=== PATIENT | male | born 1955 | race Caucasian/White ===

== ENCOUNTER 2021-11-03 09:50 | Outpatient (CLI) | payer MEDICARE, BC, SELFPAY | END 2021-11-03 09:51 | disposition home or self-care (01) | LOC: OP CLINIC 09:51 | PROVIDERS: PCP Family Medicine; Visit Provider Surgery | DX: Z12.11 Encounter for screening for malignant neoplasm of colon (principal); Z86.010 Personal history of colon polyps | CPT/HCPCS: 45378; 99153; J2250; J3010 ==

== ENCOUNTER 2022-07-21 10:25 | Outpatient (CLI) | payer MEDICARE, BC, SELFPAY | END 2022-07-21 10:26 | disposition home or self-care (01) | LOC: LONREF 10:26 | PROVIDERS: PCP Family Medicine; Visit Provider Family Medicine | DX: Z00.00 Encounter for general adult medical examination without abnormal findings (principal); I10 Essential (primary) hypertension | CPT/HCPCS: 80048 ==

== ENCOUNTER 2023-06-27 11:55 | Observation (INO) | payer MEDICARE, BC, SELFPAY ==
[2023-06-27] VITALS (21 sets, daily range): BP systolic 125–175; BP diastolic 71–118; PULSE 47–64; RESP 14–18; TEMP 36.2–36.8; O2SAT 88–100; BMI 23.7; BMI 24.9
[2023-06-27] MEDS: ONDANSETRON 2 MG/ML inj 4 MG IVP ×2 (12:00→13:21)
--- NOTE | 2023-06-27 12:03 | CT_ITS ---
Patient: KRYSTIAN BUTLER Facility:?[facility] Patient ID:?[id number] Site Patient ID:?[id number]. Site :?1955 Study:?CT-Head Angio W ISOVUE 370 STROKE PROTOCOL-06/27/2023 12:22:15 PM Ordering Physician:MAR Final Report: CLINICAL HISTORY: Vertigo. TECHNIQUE: Standard helical CT image acquisition through the head following the administration of intravenous contrast was performed. 3D and MIP reconstructions were performed at a separate workstation and permanently archived. COMPARISON: None available. FINDINGS: No intracranial proximal large vessel occlusion or flow-limiting luminal stenosis. No evidence of cerebral aneurysm. No findings to suggest an arterial-venous shunting lesion. The major dural venous sinuses and deep venous system are patent. IMPRESSION: No intracranial proximal large vessel occlusion, flow-limiting luminal stenosis, or cerebral aneurysm. Please note that all CT scans at this facility use dose modulation, iterative reconstruction, and/or weight-based dosing when appropriate to reduce radiation dose to as low as reasonably achievable. Dictated by Chan Montoya MD @ 06/27/2023 12:48:09 PM Signed by:?Chan Montoya MD @06/27/2023 12:48:09 PM (Electronic Signature)
--- NOTE | 2023-06-27 12:03 | CT_ITS ---
Patient: KRYSTIAN BUTLER Facility:?[facility] Patient ID:?[id number] Site Patient ID:?[id number]. Site :?1955 Study:?CT-Head WO STROKE PROTOCOL-06/27/2023 12:18:15 PM Ordering Physician:MAR Final Report: INDICATION: Vertigo COMPARISON: None. TECHNIQUE: CT of the head without contrast. Multiplanar reformats are included. FINDINGS: No intracranial hemorrhage. No acute or subacute cortically based infarct. Normal appearance of the white matter. No mass or mass effect Normal ventricles. No skull fractures. No worrisome focal bone lesion. The mastoids and middle ears are normally aerated. IMPRESSION: Normal head CT. Please note that all CT scans at this facility use dose modulation, iterative reconstruction, and/or weight-based dosing when appropriate to reduce radiation dose to as low as reasonably achievable. Dictated by Ketty Powell MD @ 06/27/2023 12:24:50 PM ----- ADDENDUM ----- Report confirmed as received by Dr. Hill at 12:25 p.m. on 06/27/2023. Dictated by Ketty Powell MD @ Jun 27 2023 12:29PM Signed by:?Ketty Powell MD @06/27/2023 12:24:50 PM (Electronic Signature)
--- NOTE | 2023-06-27 12:03 | CT_ITS ---
Patient: KRYSTIAN BUTLER Facility:?[facility] Patient ID:?[id number] Site Patient ID:?[id number]. Site :?1955 Study:?CT-Neck Angio W ISOVUE 370 STROKE PROTOCOL-06/27/2023 12:25:34 PM Ordering Physician:MAR Final Report: CLINICAL HISTORY: Vertigo. TECHNIQUE: Standard helical CT image acquisition through the neck was performed after intravenous contrast bolus enhancement. 3D and MIP reconstructions were performed at a separate workstation and permanently archived. COMPARISON: None available. FINDINGS: The origins of the great vessels from the aortic arch are patent. The common carotid arteries are patent. No significant luminal stenoses of the proximal ICAs by NASCET criteria. The more distal cervical segments of the ICAs are patent. The origins and cervical segments of the vertebral arteries are patent. IMPRESSION: Patent cervical arterial vasculature without hemodynamically significant luminal stenosis. Please note that all CT scans at this facility use dose modulation, iterative reconstruction, and/or weight-based dosing when appropriate to reduce radiation dose to as low as reasonably achievable. Dictated by Chan Montoya MD @ 06/27/2023 12:48:49 PM Signed by:?Chan Montoya MD @06/27/2023 12:48:49 PM (Electronic Signature)
--- NOTE | 2023-06-27 12:06 | ED.GENADULT ---
HPI - General Adult General Date Seen: 06/27/23 Chief complaint: Nausea/Vomiting Stated complaint: vomiting Time Seen by Provider: 06/27/23 12:02 Source: patient, EMS and RN notes reviewed Mode of arrival: EMS Limitations: no limitations History of Present Illness HPI narrative: Patient was seen on arrival as stroke code called, was brought in by EMS from home. He was out getting would, was putting it in a wood burner when he had sudden severe onset of dizziness which is described as a spinning sensation. He had severe nausea vomiting with it. He states he cannot open his eyes. He has hypertension, no history of any vascular disease or cardiac disease, no prior strokes. He is a nonsmoker. He states he does take medicine for hypertension but no other medicines. He denies any trauma, did not hit his head. He does not take daily aspirin or any blood thinners. He did not get any medicines in route by EMS. Denies any numbness tingling or weakness in his extremities, states he cannot open his eyes as he becomes severely symptomatic, is hanging onto an emesis bag on arrival. Related Data Home Medications Medication Instructions Recorded Confirmed losartan 25 mg tablet 25 mg PO DAILY 06/27/23 06/27/23 Allergies Allergy/AdvReac Type Severity Reaction Status Date / Time No Known Allergies Allergy Unverified 07/21/22 09:31 Review of Systems Status of ROS: Reports: 6 or more systems reviewed and unremarkable except as noted in History and below [facility] Medical History (Updated 06/27/23 @ 16:57 by Flor Gillespie PA-C) Bradycardia ?R00.1 - Bradycardia, unspecified (ICD-10) Hypertension ?I10 - Essential (primary) hypertension (ICD-10) Surgical History History of colonoscopy ?Z98.890 - Other specified postprocedural states (ICD-10) Social History What is your current living situation?: I presently have a place to live Problems where you live: no known problems Problems where you live details: none In the past 12 months, utilities in danger of being shut off: no In past 12 months, lack of transportation kept you from medical appts, meetings, work, or getting things needed for daily living: no In the past 12 mos, have been you worried that your food would run out before you had money to buy more?: never true In the past 12 mos, the food you bought just didn't last and you didn't have money to buy more?: never true Highest level of school completed/degree received: Bachelor's degree Smoking Status: Never smoker How often do you have a drink containing alcohol: monthly or less Alcohol type: beer AUDIT-C Alcohol total score: 1 Non-prescribed substance use: denies use Caffeine: No How often does anyone, including family, friends and others, physically hurt you: never How often does anyone, including family, friends and others, insult or talk down to you: never How often does anyone, including family, friends and others, threaten you with harm: never How often does anyone, including family, friends and others, scream or curse at you: never Little interest or pleasure in doing things: not at all Feeling down, depressed, or hopeless: not at all service: No Exam Const: Vital Signs, click to edit/add: Vital Signs - 24 hr 06/27/23 12:05 06/27/23 12:20 06/27/23 12:40 Temperature 97.1 F L Pulse Rate Pulse Rate [Right Pulse Oximeter] 52 L Respiratory Rate 18 Blood Pressure Blood Pressure [Ri ght Upper Arm] 170/91 H Pulse Oximetry 100 98 88 Oxygen Delivery Me thod Room Air Nasal Cannula Oxygen Flow Rate 2 06/27/23 12:57 06/27/23 13:00 06/27/23 13:04 Temperature Pulse Rate 51 L 51 L 64 Pulse Rate [Right Pulse Oximeter] Respiratory Rate Blood Pressure 169/118 H Blood Pressure [Ri ght Upper Arm] Pulse Oximetry 100 100 100 Oxygen Delivery Me thod Oxygen Flow Rate 06/27/23 13:17 06/27/23 13:30 06/27/23 14:17 Temperature Pulse Rate 48 L 53 L 53 L Pulse Rate [Right Pulse Oximeter] Respiratory Rate Blood Pressure 142/80 H Blood Pressure [Ri ght Upper Arm] Pulse Oximetry 98 100 99 Oxygen Delivery Me thod Oxygen Flow Rate 06/27/23 14:19 06/27/23 14:20 06/27/23 14:30 Temperature Pulse Rate 54 L 51 L 50 L Pulse Rate [Right Pulse Oximeter] Respiratory Rate Blood Pressure 156/75 H Blood Pressure [Ri ght Upper Arm] Pulse Oximetry 100 100 99 Oxygen Delivery Me thod Oxygen Flow Rate 06/27/23 15:00 Temperature Pulse Rate 47 L Pulse Rate [Right Pulse Oximeter] Respiratory Rate Blood Pressure Blood Pressure [Ri ght Upper Arm] Pulse Oximetry 100 Oxygen Delivery Me thod Oxygen Flow Rate On arrival, patient is alert and interactive but closing his eyes, cannot get him to open his eyes for more than maybe a couple seconds, can see just long enough to note that his pupils do seeing equal, conjugate gaze, will not keep them open long enough for me to be able to assess nystagmus. He is able to talk, speech seems normal, does demonstrate symmetrical facial function. Lungs sound clear, heart rate is regular, no murmur. Abdomen is soft, rebound or guarding. Seems to have symmetrical hand cardio tech strengths which are normal, normal sensation. No gross focal neurologic deficit noted at this time but exam limited by patient's significant symptomatic vertigo, will not open eyes. Documenting provider has reviewed patient's vital signs: yes Course Course ED Course: We are proceeding with a stroke code on this patient, will go get CT, CT angio of head neck emergently. Will get EKG, appropriate labs, be on cardiac monitoring and pulse oximetry. IV obviously needs to be established. Will give him 4 mg IV Zofran for nausea control. Staff is contacting stroke Neurology per protocol. Reevaluation(s) Time of Reevaluation #1: 12:47 Reevaluation #1: Patient is sedated from the IV Valium but states he feels better. Is able to open his eyes, has consistent right beating nystagmus. Does have catch-up saccades with movement of his head in asking him to fix is gaze, he states that that maneuver makes him symptomatic. He closes his eyes again. He feels like he is falling when he closes his eyes. He has strength that is 5/5 and symmetric, speech is normal, symmetrical facial function. Normal light touch sensation throughout face and extremities. No arm drift, can lift legs off the bed and hold them up, on heel-maurer he puts his heel along the medial calf and goes up and down his leg but there is no dysmetria within that maneuver, symmetrical on both sides. His family is updated on the head CT being normal. They are wondering if that is sufficient. Reviewed with him the process that we work through when we are looking at these specific symptoms. Did discuss stroke. Patient had a [id number] that had a brain tumor that did not get picked up with head CT. Reviewed with them that this is common, well known for us. Sometimes tumors need MRI within the brain to be diagnosed. Reviewed with them that we are most concerned about the potential of his stroke here however, need to rule out central cause for his vertigo. He may still be getting MRI, they are where that I am going to be talking to Stroke Neurology again. Time of Reevaluation #2: 13:17 Reevaluation #2: We are trying to get this patient worked into the MRI schedule but he just had another emesis. There was concern about him being able to safely do the MRI. We are going to give him another dose of IV Zofran 4 mg, will try a dose of 5 mg oral Valium with this. I do think repeating the IV Valium maybe a bit too sedating for this patient. Time of Reevaluation #3: 14:52 Reevaluation #3: Updated patient's 2 sons who were in the room with him. Patient was initially resting and then started dry heaving, was just lying on his left side quietly when he stated he was going to throw up. Was more dry heaving. I will order a does of IV Ativan. He will need to come in for symptom control. If this continues, would discuss with Neurology again. Consultations Consultation #1: Have spoken with Stroke Neurology, talked to Dr. Hill. We will proceed with a head CT imaging. I will contact her back once patient comes back from head CT, will try 2.5 mg IV Valium as well as the Zofran for symptom control. If the Valium does help him, will see if I can evaluate him better prior to calling Dr. Hill back. Time: 12:07 Consultation #2: Called and left message on Dr. Hill's cellphone to contact me back. She called back within minutes, reviewed my updates with her. She would like to proceed with brain MRI. Time: 12:57 Consultation #3: Have updated Dr. Hill that the MRI is showing no evidence of any acute ischemia. Thus, plan to treat him here symptomatic Karen, will talk to our hospitalist. He seems too symptomatic to be able to go home. Will consider this vertigo disorder along the lines of something like vestibular neuritis. It is interesting to me that it just happened suddenly when he was moving logs. If the hospitalist has any questions for Neurology, they should feel free to contact them, Dr. Hill will be on tomorrow as well. Will update patient and his family now on plan in the negative MRI. Time: 14:46 Additional Consultation(s): 2:56 p.m.: Have spoken with Flor Gillespie hospitalist, she does accept care. Vital Signs Vital signs: Initial Vital Signs Temperature 97.1 F L 06/27/23 12:05 Temperature Source Temporal Artery Scan 06/27/23 12:05 Pulse Rate 52 L 06/27/23 12:05 Respiratory Rate 18 06/27/23 12:05 Blood Pressure 170/91 H 06/27/23 12:05 Blood Pressure Mean 117 H 06/27/23 12:05 Blood Pressure Position Supine 06/27/23 12:05 Pulse Oximetry 100 06/27/23 12:05 Oxygen Delivery Method Room Air 06/27/23 12:05 Vital Signs Temperature 97.1 F L 06/27/23 12:05 Pulse Rate 52 L 06/27/23 12:05 Respiratory Rate 18 06/27/23 12:05 Blood Pressure 170/91 H 06/27/23 12:05 Pulse Oximetry 100 06/27/23 12:05 Oxygen Delivery Method Room Air 06/27/23 12:05 Temperature 97.7 F 06/27/23 15:49 Pulse Rate 53 L 06/27/23 17:02 Respiratory Rate 16 06/27/23 16:12 Blood Pressure 175/94 H 06/27/23 15:49 Pulse Oximetry 96 06/27/23 16:12 Oxygen Delivery Method Room Air 06/27/23 16:12 Oxygen Flow Rate 2 06/27/23 12:40 Medications Administered Medications: Generic Name Dose Route Start Last Admin Trade Name Freq PRN Reason Stop Dose Admin Sodium Chloride 1,000 mls @ 75 mls/hr 06/27/23 16:01 06/27/23 16:38 0.9 % Sodium Chloride 1000 Ml IV 06/28/23 05:20 75 mls/hr .[id number] BRAYAN Administration Scopolamine 1 patch 06/27/23 17:00 06/27/23 16:53 Scopolamine 1 Mg/3 Day Patch TRANSDERMA 1 patch Q72H BRAYAN Administration Discontinued Medications Generic Name Dose Route Start Last Admin Trade Name Freq PRN Reason Stop Dose Admin Diazepam 2.5 mg 06/27/23 12:09 06/27/23 12:35 Diazepam 5 Mg/Ml Inj IV 06/27/23 12:10 2.5 mg ONCE ONE Administration Diazepam 5 mg 06/27/23 13:16 06/27/23 13:35 Diazepam 5 Mg Tablet PO 06/27/23 13:17 5 mg ONCE ONE Administration Lorazepam 0.5 mg 06/27/23 14:53 06/27/23 15:05 Lorazepam 2 Mg/Ml Inj IVP 06/27/23 14:54 0.5 mg ONCE ONE Administration Ondansetron HCl 4 mg 06/27/23 12:06 06/27/23 12:00 Ondansetron 2 Mg/Ml Inj IVP 06/27/23 12:07 4 mg ONCE ONE Administration Ondansetron HCl 4 mg 06/27/23 13:16 06/27/23 13:21 Ondansetron 2 Mg/Ml Inj IVP 06/27/23 13:17 4 mg ONCE ONE Administration Medical Decision Making Lab Data Lab results reviewed: Yes I reviewed the patient's lab results Labs: Lab Results 06/27/23 06/27/23 Range/Units 12:03 12:30 WBC 5.85 (4.50-11.00) K/uL RBC 4.57 (4.30-5.90) m/uL Hgb 13.6 (13.5-17.5) gm/dL Hct 39.7 (37.0-53.0) % MCV 87 (80-100) fL MCH 30 (26-34) pg MCHC 34 (32-36) gm/dL RDW Coeff of Katerine 12.7 (11.5-15.5) % Plt Count 105 L (140-440) K/uL Neut % (Auto) 76.7 H (42.0-72.0) % Lymph % (Auto) 14.9 L (20-44) % Sandoval % (Auto) 6.3 (0.0-11.0) % Eos % (Auto) 1.4 (0.0-7.0) % Baso % (Auto) 0.5 (0.0-3.0) % Neut # (Auto) 4.50 (1.7-7.0) K/uL Lymph # (Auto) 0.90 (0.90-2.90) K/uL Sandoval # (Auto) 0.40 (0.00-0.90) K/UL Eos # (Auto) 0.08 (0.00-0.50) K/uL Baso # (Auto) 0.03 (0.00-0.30) K/uL Abs Immat Gran (auto) 0.01 (0.00-0.30) K/uL Imm/Tot Granulo (auto) 0.2 % INR 0.98 (0.91-1.10) APTT 30 (23-33) Seconds Sodium 135 (135-149) mmol/L Potassium 4.5 (3.6-5.1) mmol/L Chloride 104 (96-114) mmol/L Carbon Dioxide 24 (20-32) mmol/L Anion Gap 7 (7-15) mEq/L BUN 16 (7-30) mg/dL Creatinine 0.7 (0.5-1.5) mg/dL Estimated Creat Clear 78.68 Estimated GFR 101 ml/min Glucose 111 (60-115) mg/dL Calcium 8.9 (8.4-10.6) mg/dL Total Bilirubin 1.4 (0.1-1.5) mg/dL AST 24 (12-35) U/L ALT 20 (4-50) U/L Alkaline Phosphatase 56 (40-150) U/L Troponin I < 0.01 L (0.01-0.04) ng/mL C-Reactive Protein < 0.5 L (0.5-1.0) mg/dL Total Protein 7.2 (6.0-8.3) g/dL Albumin 4.1 (3.3-5.0) g/dL TSH 1.530 (0.270-4.200) uIU/mL POC Glucose 109 (60-115) mg/dl Imaging Data CT scan - head: Attestation: I have reviewed the pertinent imaging results. Radiologist's impression: Patient: KRYSTIAN BUTLER Facility:[facility] Patient ID:?[id number] Site Patient ID:?[id number]. Site :?1955 Study:?CT Head WO STROKE PROTOCOL-06/27/2023 12:18:15 PM Ordering Physician:MAR Final Report: INDICATION: Vertigo COMPARISON: None. TECHNIQUE: CT of the head without contrast. Multiplanar reformats are included. FINDINGS: No intracranial hemorrhage. No acute or subacute cortically based infarct. Normal appearance of the white matter. No mass or mass effect Normal ventricles. No skull fractures. No worrisome focal bone lesion. The mastoids and middle ears are normally aerated. IMPRESSION: Normal head CT. Please note that all CT scans at this facility use dose modulation, iterative reconstruction, and/or weight-based dosing when appropriate to reduce radiation dose to as low as reasonably achievable. Dictated by Ketty Powell MD @ 06/27/2023 12:24:50 PM (Electronic Signature) CT- Other: Attestation: I have reviewed the pertinent imaging results. Radiologist's impression: Patient: KRYSTIAN BUTLER Facility:?[facility] Patient ID:?[id number] Site Patient ID:?[id number]. Site :?1955 Study:?CT Head Angio W ISOVUE 370 STROKE PROTOCOL-06/27/2023 12:22:15 PM Ordering Physician:?JOHNNY Final Report: CLINICAL HISTORY: Vertigo. TECHNIQUE: Standard helical CT image acquisition through the head following the administration of intravenous contrast was performed. 3D and MIP reconstructions were performed at a separate workstation and permanently archived. COMPARISON: None available. FINDINGS: No intracranial proximal large vessel occlusion or flow-limiting luminal stenosis. No evidence of cerebral aneurysm. No findings to suggest an arterial-venous shunting lesion. The major dural venous sinuses and deep venous system are patent. IMPRESSION: No intracranial proximal large vessel occlusion, flow-limiting luminal stenosis, or cerebral aneurysm. Please note that all CT scans at this facility use dose modulation, iterative reconstruction, and/or weight-based dosing when appropriate to reduce radiation dose to as low as reasonably achievable. Dictated by Chan Montoya MD @ 06/27/2023 12:48:09 PM (Electronic Signature) Patient: KRYSTIAN BUTLER Facility:?[facility] Patient ID:?[id number] Site Patient ID:?[id number]. Site :?1955 Study:?CT Neck Angio W ISOVUE 370 STROKE PROTOCOL-06/27/2023 12:25:34 PM Ordering Physician:MAR Final Report: CLINICAL HISTORY: Vertigo. TECHNIQUE: Standard helical CT image acquisition through the neck was performed after intravenous contrast bolus enhancement. 3D and MIP reconstructions were performed at a separate workstation and permanently archived. COMPARISON: None available. FINDINGS: The origins of the great vessels from the aortic arch are patent. The common carotid arteries are patent. No significant luminal stenoses of the proximal ICAs by NASCET criteria. The more distal cervical segments of the ICAs are patent. The origins and cervical segments of the vertebral arteries are patent. IMPRESSION: Patent cervical arterial vasculature without hemodynamically significant luminal stenosis. Please note that all CT scans at this facility use dose modulation, iterative reconstruction, and/or weight-based dosing when appropriate to reduce radiation dose to as low as reasonably achievable. Dictated by Chan Montoya MD @ 06/27/2023 12:48:49 PM (Electronic Signature) MR Brain: Attestation: I have reviewed the pertinent imaging results. Radiologist's impression: Patient: KRYSTIAN BUTLER Facility:?[facility] Patient ID:?[id number] Site Patient ID:?[id number]. Site :?1955 Study:?MRI Head w/o-06/27/2023 2:17:30 PM Ordering Physician:Marimar Cheng Final Report: Indication: Severe vertigo. Technique: Multisequence multiplanar MRI of the brain without the use of intravenous contrast. Comparison: Correlated with CT head dated same day 1213 hours. Findings: No evidence of acute ischemia. Few scattered foci T2 prolongation within the subcortical white matter of the frontal lobes. Punctate focus of susceptibility artifact in the left posterior temporal lobe (series 8, image 31). The ventricles are normal in size. Flow voids of the larger intracranial arteries are preserved. Normal calvarial bone marrow signal intensity. Unremarkable orbits. Scattered ethmoid sinus mucosal thickening and trace right mastoid effusion. Impression: 1. No acute intracranial abnormality. Specifically, no evidence of acute ischemia. 2. Few scattered foci of T2 prolongation within the subcortical white matter of the frontal lobes, nonspecific, but commonly seen in the setting of chronic migraine headaches or as sequela of mild chronic small-vessel ischemic changes 3. Punctate focus of susceptibility in the left posterior temporal lobe consistent with sequela of prior microhemorrhage. Dictated by Tomás Zaidi MD @ 06/27/2023 2:26:11 PM (Electronic Signature) ECG Data Attestation: I personally reviewed and interpreted this ECG as follows: (Sinus bradycardia with first-degree AV block, 53 beats per minute. No infarct or ischemia. QT corrected 437 milliseconds.) Prior ECG tracings: not available for review
[2023-06-27 12:14] LABS: Hematocrit 39.7 % (37.0-53.0); Hemoglobin* 13.6 gm/dL (13.5-17.5); Mean Corpuscular HGB Conc 34 gm/dL (32-36); Mean Corpuscular Hemoglobin 30 pg (26-34); Mean Corpuscular Volume 87 fL (80-100); Neutrophils Percent Auto 76.7 % (42.0-72.0); Platelet Count* 105 K/uL (140-440); RDW Coefficient of Variation % 12.7 % (11.5-15.5); Red Blood Count 4.57 m/uL (4.30-5.90); White Blood Count* 5.85 K/uL (4.50-11.00)
[2023-06-27 12:15] LABS: Basophils Absolute Auto 0.03 K/uL (0.00-0.30); Basophils Percent Auto 0.5 % (0.0-3.0); Eosinophils Absolute Auto 0.08 K/uL (0.00-0.50); Eosinophils Percent Auto 1.4 % (0.0-7.0); Immature Granulocytes Abs Auto 0.01 K/uL (0.00-0.30); Immature Granulocytes Pct Auto 0.2 %; Lymphocytes Percent Auto 14.9 % (20-44); Monocytes Percent Auto 6.3 % (0.0-11.0)
[2023-06-27 12:17] LABS: Slide Review Reflex No
[2023-06-27 12:32] LABS: INR 0.98 (0.91-1.10); Partial Thromboplastin Time* 30 Seconds (23-33); Prothrombin Time 13.6 Seconds
[2023-06-27] MEDS: diazePAM 5 MG/ML inj 2.5 MG IV (12:35)
[2023-06-27 12:39] LABS: Albumin* 4.1 g/dL (3.3-5.0); Chloride* 104 mmol/L (96-114)
[2023-06-27 12:40] LABS: Potassium* 4.5 mmol/L (3.6-5.1); Sodium* 135 mmol/L (135-149)
[2023-06-27 12:42] LABS: Alanine Aminotransferase* 20 U/L (4-50); Alkaline Phosphatase* 56 U/L (40-150); Anion Gap 7 mEq/L (7-15); Aspartate Amino Transferase* 24 U/L (12-35); Bilirubin Total* 1.4 mg/dL (0.1-1.5); Blood Urea Nitrogen* 16 mg/dL (7-30); Carbon Dioxide* 24 mmol/L (20-32); Creatinine* 0.7 mg/dL (0.5-1.5); Est. Creatinine Clearance* 78.68; Estimated Glomerular Filt Rate 101 ml/min; Total Protein* 7.2 g/dL (6.0-8.3)
[2023-06-27 12:43] LABS: Calcium* 8.9 mg/dL (8.4-10.6); Glucose* 111 mg/dL (60-115)
[2023-06-27 12:55] LABS: C Reactive Protein* < 0.5 mg/dL (0.5-1.0); Troponin I* < 0.01 ng/mL (0.01-0.04)
--- NOTE | 2023-06-27 13:01 | MR_ITS ---
Patient: KRYSTIAN BUTLER Facility:?[facility] Patient ID:?[id number] Site Patient ID:?[id number]. Site :?1955 Study:?MRI-Head w/o-06/27/2023 2:17:30 PM Ordering Physician:?Janna Cheng Final Report: Indication: Severe vertigo. Technique: Multisequence multiplanar MRI of the brain without the use of intravenous contrast. Comparison: Correlated with CT head dated same day 1213 hours. Findings: No evidence of acute ischemia. Few scattered foci T2 prolongation within the subcortical white matter of the frontal lobes. Punctate focus of susceptibility artifact in the left posterior temporal lobe (series 8, image 31). The ventricles are normal in size. Flow voids of the larger intracranial arteries are preserved. Normal calvarial bone marrow signal intensity. Unremarkable orbits. Scattered ethmoid sinus mucosal thickening and trace right mastoid effusion. Impression: 1. No acute intracranial abnormality. Specifically, no evidence of acute ischemia. 2. Few scattered foci of T2 prolongation within the subcortical white matter of the frontal lobes, nonspecific, but commonly seen in the setting of chronic migraine headaches or as sequela of mild chronic small-vessel ischemic changes 3. Punctate focus of susceptibility in the left posterior temporal lobe consistent with sequela of prior microhemorrhage. Dictated by Tomás Zaidi MD @ 06/27/2023 2:26:11 PM Signed by:?Tomás Zaidi MD @06/27/2023 2:26:11 PM (Electronic Signature)
[2023-06-27] MEDS: diazePAM 5 MG TABLET PO (13:35)
[2023-06-27 14:26] LABS: Glucose, Point-of-Care* 109 mg/dl (60-115)
[2023-06-27] MEDS: LORazepam 2 MG/ML inj 0.5 MG IVP (15:05)
--- NOTE | 2023-06-27 15:12 | P.IMHP_ITS ---
Hospitalist- H&P: HPI History of Present Illness Date Seen: 06/27/23 Chief complaint: vomiting Narrative: Ac Montilla is a 68 year old male trickle history significant for hypertension, tinnitus is admitted to the medical floor with unrelenting vertiginous symptoms. CT/CTA head and MRI head unremarkable for acute intracranial abnormalities, specifically no finding of acute stroke. Patient is seen with and sons at bedside. Patient was brought to the ED via EMS, reporting sudden severe onset dizziness described as a spinning sensation after bending over to put wood in the wood stove. Patient has been nauseous with vomiting. Has continued to struggle with nausea and vomiting in the ED as well. Unable to open his eyes for anything more than a brief period of time as dizziness and nausea worsens. No trauma, no head injury, no loss of consciousness. Mild, left frontal headache. Denies numbness, tingling, or weakness of the extremities. No report of slurring of speech or facial droop. Had a URI approximately 2 weeks ago, symptoms have since resolved. No recent fevers. Denies chest pain or shortness of breath. No abdominal pain, change in stools or urination. History of tinnitus, chronic, occasionally worsens. Denies recent change in hearing. Had an eye exam a few weeks ago and has new glasses. In the ED, stroke workup initiated, Tele-Neurology, Dr. Hill. Troponin and EKG unremarkable for ACS. TSH WNL. Electrolytes reasonable. Unfortunately, patient has not had adequate response to 8 mg Zofran, 2.5 mg IV Valium, 5 mg p.o. Valium, 0.5 mg IV Ativan. Unable to keep his eyes open without becoming more nauseous or dizzy. Review of Systems Narrative: REVIEW OF SYSTEMS: Complete review of systems performed and negative unless otherwise stated in HPI or below. [facility] Medical History (Updated 06/27/23 @ 16:57 by Flor Gillespie PA-C) Bradycardia ?R00.1 - Bradycardia, unspecified (ICD-10) Hypertension ?I10 - Essential (primary) hypertension (ICD-10) Surgical History History of colonoscopy ?Z98.890 - Other specified postprocedural states (ICD-10) Social History What is your current living situation?: I presently have a place to live Problems where you live: no known problems Problems where you live details: none In the past 12 months, utilities in danger of being shut off: no In past 12 months, lack of transportation kept you from medical appts, meetings, work, or getting things needed for daily living: no In the past 12 mos, have been you worried that your food would run out before you had money to buy more?: never true In the past 12 mos, the food you bought just didn't last and you didn't have money to buy more?: never true Highest level of school completed/degree received: Bachelor's degree Smoking Status: Never smoker How often do you have a drink containing alcohol: monthly or less Alcohol type: beer AUDIT-C Alcohol total score: 1 Non-prescribed substance use: denies use Caffeine: No How often does anyone, including family, friends and others, physically hurt you : never How often does anyone, including family, friends and others, insult or talk down to you: never How often does anyone, including family, friends and others, threaten you with harm: never How often does anyone, including family, friends and others, scream or curse at you: never Little interest or pleasure in doing things: not at all Feeling down, depressed, or hopeless: not at all service: No Meds Home Medications and Allergies Home Medications Medication Instructions Recorded Confirmed Type losartan 25 mg tablet 25 mg PO DAILY 06/27/23 06/27/23 History Allergies Allergy/AdvReac Type Severity Reaction Status Date / Time No Known Allergies Allergy Unverified 07/21/22 09:31 Exam Narrative: Exam Narrative: PHYSICAL EXAM General: Sleeping, easily awakens, NAD HEENT: Normocephalic, atraumatic, sclera white, EOMI, right nystagmus noted Cardiovascular: RRR, S1S2. No pitting edema Pulmonary: CTA bilaterally without rhonchi, rales, expiratory wheezes. No dyspnea Abdominal: Soft, nondistended, NTTP Neurological: Alert, answering questions appropriately, cranial nerves intact, no focal findings, no facial droop, no slurring Extremities: No gross joint deformity or swelling. AROMI. Neurovascularly intact Skin: Warm, dry. Const: Vital Signs, click to edit/add: Vital Signs - 24 hr 06/27/23 12:05 06/27/23 12:20 06/27/23 12:40 Temperature 97.1 F L Pulse Rate Pulse Rate [Right Pulse Oximeter] 52 L Respiratory Rate 18 Blood Pressure Blood Pressure [Ri ght Upper Arm] 170/91 H Pulse Oximetry 100 98 88 Oxygen Delivery Me thod Room Air Nasal Cannula Oxygen Flow Rate 2 06/27/23 12:57 06/27/23 13:00 06/27/23 13:04 Temperature Pulse Rate 51 L 51 L 64 Pulse Rate [Right Pulse Oximeter] Respiratory Rate Blood Pressure 169/118 H Blood Pressure [Ri ght Upper Arm] Pulse Oximetry 100 100 100 Oxygen Delivery Me thod Oxygen Flow Rate 06/27/23 13:17 06/27/23 13:30 06/27/23 14:17 Temperature Pulse Rate 48 L 53 L 53 L Pulse Rate [Right Pulse Oximeter] Respiratory Rate Blood Pressure 142/80 H Blood Pressure [Ri ght Upper Arm] Pulse Oximetry 98 100 99 Oxygen Delivery Me thod Oxygen Flow Rate 06/27/23 14:19 06/27/23 14:20 06/27/23 14:30 Temperature Pulse Rate 54 L 51 L 50 L Pulse Rate [Right Pulse Oximeter] Respiratory Rate Blood Pressure 156/75 H Blood Pressure [Ri ght Upper Arm] Pulse Oximetry 100 100 99 Oxygen Delivery Me thod Oxygen Flow Rate 06/27/23 15:00 Temperature Pulse Rate 47 L Pulse Rate [Right Pulse Oximeter] Respiratory Rate Blood Pressure Blood Pressure [Ri ght Upper Arm] Pulse Oximetry 100 Oxygen Delivery Me thod Oxygen Flow Rate Hospitalist - H&P: Result Labs Labs: Short CBC 06/27/23 Range/Units 12:03 WBC 5.85 (4.50-11.00) K/uL Hgb 13.6 (13.5-17.5) gm/dL Hct 39.7 (37.0-53.0) % Plt Count 105 L (140-440) K/uL BMP 06/27/23 12:03 Sodium 135 Potassium 4.5 Chloride 104 Carbon Dioxide 24 BUN 16 Creatinine 0.7 Glucose 111 Calcium 8.9 Cardiac Enzymes 06/27/23 Range/Units 12:03 Troponin I < 0.01 L (0.01-0.04) ng/mL Liver Function 06/27/23 Range/Units 12:03 Total Bilirubin 1.4 (0.1-1.5) mg/dL AST 24 (12-35) U/L ALT 20 (4-50) U/L Alkaline Phosphatase 56 (40-150) U/L Albumin 4.1 (3.3-5.0) g/dL ECG Attestation: I personally reviewed and interpreted this ECG as follows: Interpretation: ECG shows sinus bradycardia first-degree AV block, ventricular rate 53, QTC 437 Imaging MRI - head: Attestation: I have reviewed the pertinent imaging results. Radiologist's impression: Technique: Multisequence multiplanar MRI of the brain without the use of intravenous contrast. Comparison: Correlated with CT head dated same day 1213 hours. Findings: No evidence of acute ischemia. Few scattered foci T2 prolongation within the subcortical white matter of the frontal lobes. Punctate focus of susceptibility artifact in the left posterior temporal lobe (series 8, image 31). The ventricles are normal in size. Flow voids of the larger intracranial arteries are preserved. Normal calvarial bone marrow signal intensity. Unremarkable orbits. Scattered ethmoid sinus mucosal thickening and trace right mastoid effusion. Impression: 1. No acute intracranial abnormality. Specifically, no evidence of acute ischemia. 2. Few scattered foci of T2 prolongation within the subcortical white matter of the frontal lobes, nonspecific, but commonly seen in the setting of chronic migraine headaches or as sequela of mild chronic small-vessel ischemic changes 3. Punctate focus of susceptibility in the left posterior temporal lobe consi stent with sequela of prior microhemorrhage. CTA neck: Attestation: I have reviewed the pertinent imaging results. Radiologist's impression: TECHNIQUE: Standard helical CT image acquisition through the neck was performed after intravenous contrast bolus enhancement. 3D and MIP reconstructions were performed at a separate workstation and permanently archived. COMPARISON: None available. FINDINGS: The origins of the great vessels from the aortic arch are patent. The common carotid arteries are patent. No significant luminal stenoses of the proximal ICAs by NASCET criteria. The more distal cervical segments of the ICAs are patent. The origins and cervical segments of the vertebral arteries are patent. IMPRESSION: Patent cervical arterial vasculature without hemodynamically significant luminal stenosis. CTA head: Attestation: I have reviewed the pertinent imaging results. Radiologist's impression: TECHNIQUE: Standard helical CT image acquisition through the head following the administration of intravenous contrast was performed. 3D and MIP reconstructions were performed at a separate workstation and permanently archived. COMPARISON: None available. FINDINGS: No intracranial proximal large vessel occlusion or flow-limiting luminal stenosis. No evidence of cerebral aneurysm. No findings to suggest an arterial-venous shunting lesion. The major dural venous sinuses and deep venous system are patent. IMPRESSION: No intracranial proximal large vessel occlusion, flow-limiting luminal stenosis, or cerebral aneurysm. CT scan - head: Attestation: I have reviewed the pertinent imaging results. Radiologist's impression: TECHNIQUE: CT of the head without contrast. Multiplanar reformats are included. FINDINGS: No intracranial hemorrhage. No acute or subacute cortically based infarct. Normal appearance of the white matter. No mass or mass effect Normal ventricles. No skull fractures. No worrisome focal bone lesion. The mastoids and middle ears are normally aerated. IMPRESSION: Normal head CT. Assessment and Plan Assessment and plan (1) Vertigo: Problem comment: Sudden onset when bending over, no previous history. Has a history of tinnitus CT head, CTA head, MRI head without acute intracranial abnormalities DDX: CVA, BPPV, Menieres, Vestibular neuritis Nystagmus present, symptomatic including nausea, vomiting Will manage with gentle hydration, trial of Phenergan, scopolamine patch, hydroxyzine p.r.n.. Could consider 10-day course of prednisone; 60 mg daily on days 1 through 5, 40 mg on day 6, 30 mg on day 7, 20 mg on day 8, 10 mg on day 9, and 5 mg on day 10 for vestibular neuritis PT/OT consults - Shantell/[place] maneuvers may be beneficial Consider repeat MRI if necessary Tele-Neurology, Dr. Hill, available again tomorrow for further assistance Consider outpatient Neurology, ENT, Audiometry Status: Acute (2) Hypertension: Problem comment: Continue losartan, monitor pressure Status: Chronic (3) Bradycardia: Problem comment: Noted, history of, continue to monitor Status: Chronic Total Time Spent Total Time Spent: Total time spent caring for the patient today was 45 minutes. This includes time spent for the visit reviewing the chart, time spent during the visit, time spent after the visit and documentation and planning in coordination of care.
[2023-06-27] MEDS: 0.9 % SODIUM CHLORIDE 1000 ml 1,000 ML 75 ML IV (16:38)
[2023-06-27] MEDS: SCOPOLAMINE 1 MG/3 DAY PATCH 1 PATCH TRANSDERMA (16:53)
--- NOTE | 2023-06-27 17:20 | PC.NURSE ---
End of Shift: Patient pleasant and cooperative, alert and oriented, arrived to the floor about 1535. Patient vitally stable, lungs clear, BS WNL, IV running NS at 75. Patient denies pain, but does report headache. Patient does have nystagmus when looking to the right. Patient currently bedrest due to movement causing dizziness and nausea. Patient did use urinal in bed, 300cc. Patient tele=NSR. Scop/nausea patch applied behind left ear.
[2023-06-27] MEDS: ACETAMINOPHEN 325 MG TABLET PO (21:14)
[2023-06-27] MEDS: MELATONIN 3 MG TABLET PO (21:14)
[2023-06-27] MEDS: ENOXAPARIN 30 MG/0.3ML INJ SUBCUT (21:14)
[2023-06-27] MEDS: SODIUM CHLORIDE 0.9 % (FLUSH) 10 ML SYRINGE 5 ML IVF (21:15)
[2023-06-28 03:10] VITALS: BP 103/55; PULSE 52; RESP 16; TEMP 36.6; O2SAT 97
[2023-06-28 06:25] LABS: Hematocrit 38.9 % (37.0-53.0); Hemoglobin* 13.1 gm/dL (13.5-17.5); Mean Corpuscular HGB Conc 34 gm/dL (32-36); Mean Corpuscular Hemoglobin 30 pg (26-34); Mean Corpuscular Volume 89 fL (80-100); Platelet Count* 119 K/uL (140-440); Red Blood Count 4.38 m/uL (4.30-5.90); White Blood Count* 4.81 K/uL (4.50-11.00)
[2023-06-28 06:29] LABS: Slide Review Reflex No
[2023-06-28 06:41] LABS: Chloride* 106 mmol/L (96-114); Potassium* 4.1 mmol/L (3.6-5.1); Sodium* 138 mmol/L (135-149)
[2023-06-28 06:43] LABS: Creatinine* 0.8 mg/dL (0.5-1.5); Est. Creatinine Clearance* 74.01; Estimated Glomerular Filt Rate 97 ml/min
[2023-06-28 06:44] LABS: Anion Gap 3 mEq/L (7-15); Blood Urea Nitrogen* 11 mg/dL (7-30); Calcium* 8.8 mg/dL (8.4-10.6); Carbon Dioxide* 29 mmol/L (20-32); Glucose* 91 mg/dL (60-115)
[2023-06-28 07:00] VITALS: BP 125/74; PULSE 53; RESP 15; TEMP 36.6; O2SAT 97
--- NOTE | 2023-06-28 07:32 | PC.NURSE ---
Pt alert and oriented x3. Afebrile. Pt reports 6/10 pain ?feels like a Rosalio horse? in back of neck that radiated to left side of face, updated, PRN Tylenol and warm compress given with relief, pt reported pain went away.?Pt denies SOB, chest pain, and headache. At beginning of shift 1900 pt reported nausea only with movement, pt got up around 0000 and reported ?I feel much better than before? and was able to get up and use restroom with SBA and walker. Pt slept throughout most of night. ?
[2023-06-28] MEDS: ACETAMINOPHEN 325 MG TABLET PO (07:47)
[2023-06-28] MEDS: SODIUM CHLORIDE 0.9 % (FLUSH) 10 ML SYRINGE 5 ML IVF ×2 (07:49→11:18)
[2023-06-28] MEDS: LOSARTAN POTASSIUM 50 MG TABLET 25 MG PO (10:28)
[2023-06-28] MEDS: MECLIZINE HCL 25 MG TABLET PO (11:16)
[2023-06-28] MEDS: KETOROLAC 30 MG/ML inj IVP (11:17)
[2023-06-28 11:35] VITALS: BP 129/67; PULSE 54; RESP 13; TEMP 36.8; O2SAT 97
[2023-06-28 13:32] VITALS: PULSE 50
--- NOTE | 2023-06-28 15:05 | PC.NURSE ---
Discharge: Patient was pleasant and cooperative. Discharged to home via wheelchair with his . VSS. Patient is afebrile. SpO2 maintained greater than 90% on room air. Patient complained of a headache which was managed with tylenol and toradol. Patient still complains of dizziness and is slightly unsteady, but he stated improvement. Patient bradycardic as per baseline. LS CTA. Patient complained of nausea intermittently, that resolved without intervention. Patient tolerated regular diet without difficulty. Patient was up with SBA and walker, tolerated fair. Discharge education was provided, including diagnosis information, symptoms to report, medications, and follow up plan. SL was removed with tip intact.
--- NOTE | 2023-06-28 16:12 | P.DS_ITS ---
DS: Providers Provider Date Seen: 06/28/23 Date of admission: 06/27/23 15:24 Primary care physician: Not a Local Provider Admitting Clinician: Flor Gillespie PA-C Consults: 06/27/23 16:02 Consult to Occupational Therapy [CONS] Routine Comment: Reason(s) for OT Consult:: Evaluate and Treat Any Restrictions?:: No Restrictions Consult to Physical Therapy [CONS] Routine Comment: Reason(s) for PT Consult:: Evaluate and Treat Any Restrictions?:: No Restrictions Comment: Vertigo Attending Physician on discharge: Suly Dominguez MD Date of Discharge: 06/28/23 DS: Diagnosis Discharge Diagnosis (1) Vertigo: Status: Acute Problem details: BPPV likely. Canalith repositioning exercises were helpful. Anti-inflammatory, Toradol, with meclizine seem to be the most effective. Physical therapy inpatient team recommended vestibular rehab, referral signed. Sent meclizine, ibuprofen, Zofran to his pharmacy MRI reviewed Prednisone not initiated. DS: Summary Hospital Course Hospital Course: FINAL DIAGNOSIS/FOLLOW UP ISSUES: 1. BPPV- canalith repositioning helpful. Vestibular rehab scheduled. Supportive cares outlined. BRIEF HOSPITAL COURSE: Patient was admitted overnight. Synopsis of acute inpatient issues are outlined above. Chronic medical conditions with notable findings outlined above. He had an undulating course with symptoms. I am thankful for the physical therapy team who worked with him today. He felt better by the afternoon and asked for discharge. DISCHARGE MEDICATIONS: See Reconciled list - SIGNIFICANT CHANGES: P.r.n. supportive meds as above Specific instructions to the patient and follow-up are outlined below. REVIEW OF SYSTEMS No new chest pain or dyspnea Pain controlled No voiding difficulties Tolerating diet challenge PHYSICAL EXAM: CONSTITUTIONAL: VITAL SIGNS: see record. HEENT: Normocephalic, atraumatic. PERRL, EOMI, conjunctivae pink, no scleral icterus. Ears and nose externally normal. Pharynx normal. NECK: No JVD. No carotid bruit, no thyromegaly, no adenopathy. CHEST: Clear to auscultation bilaterally. HEART: S1 and S2 normal. Edema ABDOMEN: Soft, nontender. Normal bowel sounds. MUSCULOSKELETAL: No gross joint deformity or swelling. NEURO: Cranial nerves intact. Grossly intact. No asymmetric findings. Nystagmus improved SKIN: No rashes, petechiae, concerning changes PSYCHIATRIC: Mood euthymic. DISPOSITION: Home with Time spent on discharge 37 minutes. Status at Discharge Overall status at discharge: patient is progressing back to baseline Time Spent with Patient Time attestation: Total time spent providing and/or coordinating discharge services: Time spent: Greater than 30 minutes Exam Const: Vital Signs, click to edit/add: Vital Signs - 24 hr 06/27/23 17:02 06/27/23 19:50 06/27/23 21:15 Temperature 98.2 F 97.8 F Pulse Rate 53 L Pulse Rate [Pulse Oximeter] 57 L Respiratory Rate 14 16 Blood Pressure [Le ft Arm] 130/82 125/71 Pulse Oximetry 96 97 Oxygen Delivery Me thod Room Air Room Air 06/27/23 23:00 06/27/23 23:30 06/28/23 03:10 Temperature 97.9 F Pulse Rate 53 L Pulse Rate [Pulse Oximeter] 57 L 52 L Respiratory Rate 16 Blood Pressure [Le ft Arm] 103/55 L Pulse Oximetry 97 Oxygen Delivery Me thod Room Air 06/28/23 07:00 06/28/23 07:00 06/28/23 11:35 Temperature 97.8 F 98.2 F Pulse Rate Pulse Rate [Pulse Oximeter] 53 L 53 L 54 L Respiratory Rate 15 13 Blood Pressure [Le ft Arm] 125/74 129/67 Pulse Oximetry 97 97 Oxygen Delivery Me thod Room Air Room Air 06/28/23 13:32 Temperature Pulse Rate 50 L Pulse Rate [Pulse Oximeter] Respiratory Rate Blood Pressure [Le ft Arm] Pulse Oximetry Oxygen Delivery Me thod DS: Data Data Completed and Pending Labs on day of discharge: Labs from last 24 hours 06/28/23 05:47 WBC 4.81 RBC 4.38 Hgb 13.1 L Hct 38.9 MCV 89 MCH 30 MCHC 34 Plt Count 119 L Sodium 138 Potassium 4.1 Chloride 106 Carbon Dioxide 29 Anion Gap 3 L BUN 11 Creatinine 0.8 Estimated Creat Clear 74.01 Estimated GFR 97 Glucose 91 Calcium 8.8 Discharge Plan Discharge Disposition: Home, Self-Care Date of Admission: 06/27/23 15:24 Attending Provider on Discharge: Suly Dominguez Primary Care Provider: Provider,Not a Local Condition: Improved Anticipated Discharge Date/Time: 06/28/23 12:52 Discharge Medications: New meclizine 25 mg Tablet 25 mg PO QID PRNQty: 60 0RF ondansetron HCl 4 mg tablet 4 mg PO Q6-8H PRN (Reason: nausea and vomiting) Qty: 30 0RF ibuprofen 800 mg tablet 800 mg PO Q8H PRN (Reason: pain) Qty: 60 0RF Continued losartan 25 mg tablet 25 mg PO DAILY Discharge Orders: Discharge Order (Routine); Ordered 06/28/23 Ordered By: Suly Dominguez Patient Education: Ibuprofen (By mouth), Meclizine (By mouth), Ondansetron (By mouth), Vertigo (DC) Activity Level: Activity as Tolerated Discharge Diet: Regular Follow Up Appointments: Jose Martin Mendes MD [Staff Physician] - 07/06/23 7:15 am Provider,Not a Local [Primary Care Provider] - 06/29/23 1:00 pm ([facility]estibular [facility]ist at [facility]. Chay Mckeon [address] [place] [address]) Forms: [employer] Info Instructions
== END 2023-06-28 15:00 | disposition home or self-care (01) ==
LOC: ED 12:53 → MEDSURG 15:25
PROVIDERS: Admitting Provider Physician Assistant; Emergency Provider Family Medicine; Visit Provider Family Medicine
DX: R42 Dizziness and giddiness (principal); H55.00 Unspecified nystagmus; R00.1 Bradycardia, unspecified; R11.0 Nausea; R11.10 Vomiting, unspecified; R51.9 Headache, unspecified; I10 Essential (primary) hypertension; H93.19 Tinnitus, unspecified ear; I44.0 Atrioventricular block, first degree; Z98.890 Other specified postprocedural states
CPT/HCPCS: 36415; 70450; 70496; 70498; 70551; 80048; 80053; 82947; 84443; 84484; 85025; 85027; 85610; 85730; 86140; 93005; 94761; 96361; 96372; 96374; 96375; 97116; 97162; 97165; 97535; 99285; 99291; G0378; A9270; J1650; J1885; J2060; J2405; J3360; J7030; Q9967

== ENCOUNTER 2023-06-29 12:54 | Outpatient (RCR) | payer MEDICARE, BC, SELFPAY ==
--- NOTE | 2023-06-29 16:07 | PT.OPE ---
PT [facility] Eval PT [facility] Outpatient Eval Start: 06/29/23 15:55 Freq: Status: Active Protocol: Document 06/29/23 15:55 JAIR (Rec: 06/29/23 15:56 JAIR [id number]) E-signed By Jose Sun DPT, MS Physical Therapy Outpatient Evaluation Insurance Information Recert Due Date 09/27/23 Insurance Name Medicare B,Blue Cross/Blue Shield Medical Diagnosis Vertigo Treating Diagnosis R posterior canal BPPV, sensory disorganization and imbalance Subjective Subjective Patient is an otherwise healthy 68 y.o. male who presents to PT with c/o vertigo and imbalance of insidious origin while fwd bending to put wood into his wood burning stove on 06/27/23. Experienced a sudden onset of severe room spinning dizziness and imbalance leading him to fall forward and vomit repeatedly. After lying on the ground for ~1 hour he crawled up to his home to alert his who called 911. CT scan and MRI negative for a stroke with + R [place] Hallpike testing with decreased sxs after 1 Shantell maneuver performed by the inpatient PT at [facility]. Sxs have improved but he continues to feel very off with walking and balance requiring a walker for safety. Feels like he is moving/ rocking at rest. Looking down through his bifocals also causes him to become very disorientated with amb. Denies other significant PMH with no previous episodes of vertigo. Pt hopes to resolve dizziness to improve safety with walking, daily activities, and working on his hobby farm and workshop. AGGR factors: looking down, looking up, supine<>sit transfers. ALLEV factors: slow movements, lying supine with his eyes closed, rest. Pain Comments Mild-high dizziness. Current Work Status Retired Preferred Name Michael Precautions Therapy Limitations/Systems Review Not Limited Objective Functional Test Performed & Score DHI: 74% 4-item DGI with FWW: 8/12 with excessive path deviation, decreased velocity and reaching out for wall with horizontal and vertical head movements Assessment Assessment/Impression Testing revealed + R Laure[place] Hallpike testing BPPV testing with signs and symptoms consistent with R-posterior canalithiasis BPPV. Pt displayed high levels of imbalance with amb with mild sway at rest in sitting. Sensory disorganization found with balance testing consistent with peripheral vestibular dysfunction and overreliance on his vision for balance. All other neurological testing normal. He is a falls risk based on balance testing. Pt responded very well to CRM x 2 with resolution of sxs and improved balance and quality of gait following. Pt will benefit from continued skilled PT to address these limitations. Primary Functional Limitations Supine<>sit, fwd bending, looking up, amb without a walker, amb in dark and uneven surfaces Plan of Care Rehabilitation Potential Excellent Physical Therapy Goals Therapy goals to be completed in 10 weeks: 1.Patient will display resolution of R posterior canalithiasis BPPV symptoms for >7 consecutive days to improve safety with household cleaning activities. 2.Patient will display improved Romberg balance on foam surface with eyes closed >5 sec with minimal sway to decrease falls risk on compliant surfaces. 3.Pt will report >50% improvement in DHI to significantly improve chente to daily activities. 4. Pt will be able to walk >8 minutes without an AD with a stable pattern to maintain cardiovascular fitness. Coordination/Communication With Referral Source Treatment Plan/Direct Interventions Canalith Repositioning, Neuromuscular Re-ed, Therapeutic Exercises Frequency/Duration 1-2x per week for at least 6- 10 visits Patient Will Be Discharged From Therapy Completion of LTG(s),Skills Plateau,Independent w/HEP, Independently Progressing Evaluation Billing Untimed Code Treatment Minutes 26 Complexity Moderate Certification Information Initial Certification Date 06/29/23 Ending Certification Date 09/27/23 Provider Signature Shows Agreement With POC & Medical Necessity Physician Signature & Date Requested Please Sign/Date Here Physician Comment/Change : Physician NPI Number #
== END 2023-10-27 23:59 | disposition home or self-care (01) ==
PROVIDERS: PCP Family Medicine; Visit Provider Family Medicine
DX: H81.11 Benign paroxysmal vertigo, right ear (principal); R26.81 Unsteadiness on feet; R44.8 Other symptoms and signs involving general sensations and perceptions; Z51.89 Encounter for other specified aftercare
CPT/HCPCS: 97162

== ENCOUNTER 2023-07-18 08:15 | Outpatient (CLI) | payer MEDICARE, BC, SELFPAY | END 2023-07-18 08:16 | disposition home or self-care (01) | LOC: NFLDREF 07-20 07:40 | PROVIDERS: PCP Family Medicine; Referring Provider Family Medicine; Visit Provider Family Medicine | DX: Z12.5 Encounter for screening for malignant neoplasm of prostate (principal); Z13.220 Encounter for screening for lipoid disorders | CPT/HCPCS: 80061; G0103 ==

== ENCOUNTER 2024-07-23 07:30 | Outpatient (CLI) | payer MEDICARE, BC, SELFPAY | END 2024-07-23 07:31 | disposition home or self-care (01) | LOC: NFLDREF 07-25 03:13 | PROVIDERS: PCP Family Medicine; Referring Provider Family Medicine; Visit Provider Family Medicine | DX: I10 Essential (primary) hypertension (principal) | CPT/HCPCS: 80048 ==